=== PATIENT | male | born 1940 | race Caucasian/White ===

== ENCOUNTER 2019-11-28 11:14 | Outpatient (CLI) | payer MEDICARE, MEDICAID, SELFPAY ==
[2019-11-28 14:17] LABS: Vitamin B12 711 pg/mL (193-986)
== END 2019-11-28 11:34 ==
PROVIDERS: PCP Family Medicine; Visit Provider Nurse Practitioner Adult Health
DX: E53.8 Deficiency of other specified B group vitamins (principal)
CPT/HCPCS: 36415; 82607

== ENCOUNTER 2020-04-30 12:49 | Outpatient (REF) | payer MEDICARE, MEDICAID, SELFPAY ==
[2020-04-30 14:02] LABS: Basophils % 0.4; Eosinophils % 0.8; HCT 43.9 % (40.0-50.0); HGB 15.1 g/dL (13.5-17.5); Immature Grans % 0.1 %; Lymphocytes % 21.5; Mean Corp. HGB Concentration 34.4 g/dL (32.0-36.0); Mean Corpuscular Hemoglobin 30.4 pg (27.0-33.0); Mean Corpuscular Volume 88.3 fL (80-95); Mean Platelet Volume 11.7 fL (8.0-11.0); Monocytes % 9.1; Neutrophils % 68.1; Platelet Count 247 x1000/uL (130-400); RBC 4.97 m/cumm (4.50-6.00); RBC Distribution Width 14.4 % (11.8-14.1); White Blood Cell Count 7.67 k/cumm (4.4-10.8)
[2020-04-30 14:03] LABS: Abs Immature Grans 0.01 k/cumm (0.0-0.09); Absolute Basophil Count 0.03 k/cumm (0.0-0.2); Absolute Eosinophil Count 0.06 k/cumm (0.0-0.7); Absolute Lymphocyte Count 1.65 k/cumm (1.2-3.4); Absolute Neutrophil Count 5.22 k/cumm (1.2-6.7)
[2020-04-30 14:30] LABS: Anion Gap 6.4 mmol/L (3-11); BUN 17 mg/dL (7-18); CO2 28.6 mmol/L (21.0-32.0); CREATININE 0.94 mg/dL (0.70-1.30); Calcium 9.6 mg/dL (8.5-10.1); Chloride 104 mmol/L (98-107); Glucose 81 mg/dL (74-106); Potassium 4.2 mmol/L (3.5-5.1); Sodium 139 mmol/L (136-145); TSH 1.63 uIU/mL (0.36-3.74); Vitamin B12 774 pg/mL (193-986)
== END 2020-04-30 13:09 ==
LOC: LBN 12:49
PROVIDERS: PCP Family Medicine; Visit Provider Nurse Practitioner Adult Health
DX: E53.8 Deficiency of other specified B group vitamins (principal); R33.9 Retention of urine, unspecified; N40.1 Benign prostatic hyperplasia with lower urinary tract symptoms; N31.9 Neuromuscular dysfunction of bladder, unspecified; Z13.29 Encounter for screening for other suspected endocrine disorder
CPT/HCPCS: 80048; 82607; 84443; 85025

== ENCOUNTER 2021-11-17 15:01 | Outpatient (REF) | payer MEDICARE, MEDICAID, SELFPAY ==
[2021-11-17 20:48] LABS: Bilirubin Negative (Negative); Blood Negative (Negative); Clarity Cloudy (Clear); Glucose Negative (Negative); Ketones Negative (Negative); Leukocyte Esterase Negative (Negative); Nitrite Negative (Negative); Specific Gravity >= 1.030 (1.005-1.025); Urobilinogen 0.2 EU/dL (Up TO 0.2)
== END 2021-11-17 15:02 | disposition home or self-care (01) ==
LOC: LBN 15:01
PROVIDERS: PCP Family Medicine; Visit Provider Nurse Practitioner Family
DX: N39.0 Urinary tract infection, site not specified (principal)
CPT/HCPCS: 81003; 87086

== ENCOUNTER 2023-07-20 12:45 | Outpatient (REF) | payer MEDICARE, MEDICAID, SELFPAY ==
[2023-07-20 11:32] LABS: Anion Gap 9.3 mmol/L (3-11); BUN 24 mg/dL (7-18); CO2 27.7 mmol/L (21.0-32.0); CREATININE 1.1 mg/dL (0.70-1.30); Calcium 9.2 mg/dL (8.5-10.1); Chloride 106 mmol/L (98-107); Estimated GFR 67.02 (mL/min/1.73m2); Glucose 117 mg/dL (74-106); Potassium 4.1 mmol/L (3.5-5.1); Sodium 143 mmol/L (136-145)
== END 2023-07-20 12:46 | disposition home or self-care (01) ==
LOC: LBN 12:45
PROVIDERS: PCP Family Medicine; Visit Provider Family Medicine
DX: R13.12 Dysphagia, oropharyngeal phase (principal); N40.1 Benign prostatic hyperplasia with lower urinary tract symptoms; G30.9 Alzheimer's disease, unspecified
CPT/HCPCS: 80048

== ENCOUNTER 2023-12-17 16:35 | Outpatient (REF) | payer MEDICARE, MEDICAID, SELFPAY ==
[2023-12-17 17:20] LABS: Anion Gap 6.5 mmol/L (3-11); BUN 25 mg/dL (7-18); CO2 29.5 mmol/L (21.0-32.0); Calcium 9.5 mg/dL (8.5-10.1); Chloride 110 mmol/L (98-107); Estimated GFR 75.14 (mL/min/1.73m2); Glucose 96 mg/dL (74-106); Potassium 4.5 mmol/L (3.5-5.1); Sodium 146 mmol/L (136-145)
== END 2023-12-17 16:36 | disposition home or self-care (01) ==
LOC: LBN 16:35
PROVIDERS: PCP Family Medicine; Visit Provider Nurse Practitioner Adult Health
DX: M62.81 Muscle weakness (generalized) (principal); R79.89 Other specified abnormal findings of blood chemistry
CPT/HCPCS: 80048

== ENCOUNTER 2024-06-29 18:27 | Emergency (ER) | payer MEDICARE, MEDICAID, SELFPAY ==
[2024-06-29] VITALS (30 sets, daily range): BP systolic 142–223; BP diastolic 61–196; PULSE 66–79; RESP 13–29; TEMP 37.2; O2SAT 92–98
--- NOTE | 2024-06-29 18:30 | DI.CT_ITS ---
Exam(s) CT CHEST/ABD/PEL W EXAM: CT CHEST/ABD/PEL W CLINICAL HISTORY: trauma. TECHNIQUE: Imaging Protocol: Axial computed tomography images with coronal and sagittal reformatted images were created and reviewed CONTRAST MATERIAL: Intravenous: Omnipaque 350 Contrast volume:100 ml Oral: no COMPARISON: CT ABD PELVIS WO CONTRAST from 04/02/2017 FINDINGS: CHEST: Tracheobronchial tree: Patent. Pulmonary parenchyma: No consolidation or dominant measurable mass. Dependent changes. Pleura: No effusion or pneumothorax. Mediastinum: Small amount of fluid in distal esophagus which could indicate reflux.. Aorta: Thoracic portion non-dilated. Atherosclerotic changes Pulmonary arteries: No visible emboli. Heart: No pericardial effusion. Coronary artery calcifications. Bones: No evidence of acute fracture. Old mid to lower thoracic compression fractures and accentuate d kyphosis. Soft tissues: Unremarkable. ABDOMEN and PELVIS: Liver: Normal density. No measurable mass. Gallbladder and biliary tract: No evidence of stones or wall thickening. No biliary dilatation. Pancreas: Normal density, no inflammatory process. Spleen: Normal. Kidneys: Normal size, contour and axis. No radiodense stones. No obstructive uropathy. No suspicious masses seen. Adrenal glands: No masses seen. Aorta: Abdominal portion non-dilated. Sclerotic changes. Lymph nodes: Within normal limits. Soft tissues: Unrem left inguinal hernia containing a loop of nonobstructed sigmoid colon. Small fat ty containing right inguinal hernia. Bladder: Catheter in bladder. Bowel: No obstruction or bowel wall thickening. Peritoneal cavity: No ascites. No focal collection. No mesenteric inflammatory response. No free ai r. Bones: Acute nondisplaced fracture right inferior pubic ramus. Old left inferior pubic ramus fractur e. Old left pubic deformity. Reproductive organs: enlarged prostate. IMPRESSION: Chest: No acute abnormality. Old compression fractures. Abdomen pelvis: Acute nondisplaced fracture right states inferior pubic ramus. No additional acute fractures. No acute internal organ injury. RADIATION DOSE DELIVERED: Total DLP DATA REPOSITORY: All CT scans at this facility are submitted to the National Radiology Data Registry (NRDR) Dose Index Registry (DIR) with the [employer] (ACR). RADIATION OPTIMIZATION: All CT scans at this facility use at least one of these dose optimization te chniques: automated exposure control; mA and/or kV adjustment per patient size (includes targeted exa ms where dose is matched to clinical indication); or iterative reconstruction.
--- NOTE | 2024-06-29 18:30 | DI.CT_ITS ---
Exam(s) CT HEAD CERVICAL SPINE WO EXAM: CT HEAD CERVICAL SPINE WO CLINICAL HISTORY: trauma. TECHNIQUE: Imaging Protocol: Axial computed tomography images with coronal and sagittal reformatted images were created and reviewed COMPARISON: No exams were available for comparison FINDINGS: Head CT Ventricles and Extra axial spaces: Normal in size and morphology for the patient's age. Hemorrhage: None. Cerebral parenchyma: No evidence of mass or acute infarct. Atrophy, consistent with the patient's ag e. Mild white matter changes of small vessel disease. Midline shift: None. 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 Calvarium: Normal. Visualized Paranasal sinuses/Mastoids: Ethmoid sinus mucosal thickening. Soft tissues: Unremarkable. Cervical Spine CT BONES: Vertebral body heights are maintained. Alignment is normal. There is no evidence of acute frac ture. Advanced degenerative disc changes and facet degenerative changes are seen . SOFT TISSUES: No paraspinal hematoma. The airway appears intact. No pneumothorax is seen at the lung apices. IMPRESSION: Head CT: No acute abnormality. C-spine CT: Degenerative changes, no acute abnormality. RADIATION DOSE DELIVERED: Total DLP DATA REPOSITORY: All CT scans at this facility are submitted to the National Radiology Data Registry (NRDR) Dose Index Registry (DIR) with the [employer] (ACR). RADIATION OPTIMIZATION: All CT scans at this facility use at least one of these dose optimization te chniques: automated exposure control; mA and/or kV adjustment per patient size (includes targeted exa ms where dose is matched to clinical indication); or iterative reconstruction.
[2024-06-29] MEDS: Lidocaine 2% Jelly 6 ML SYR (18:45)
--- NOTE | 2024-06-29 18:45 | RT.EKG_ITS ---
APPROVED REPORT Exam: Resting ECG Reason for Exam: unwitnessed fall Patient Location: E HR:91 bpm ECG Measurements Heart Rate 91 AXIS IA [id number] P [id number] QRSd 166 QRS 52 QT 402 T 47 QTc 559 Conclusion Atrial fibrillation...? atrial activity Right bundle branch block...QRSd>120, terminal axis(90,270) Repol abnrm, prob ischemia, anterolateral lds...ST dep, T neg, I aVL V2-V6
--- NOTE | 2024-06-29 18:50 | ED.GENADUL_ITS ---
Discharge Plan Disposition Patient Disposition: [facility](SNF) Discharge Details Chief Complaint: Fall/Non TraumaCriteria Clinical Impression: Fall, Closed fracture of inferior pubic ramus Primary Care Provider: Vivek Nava ED Provider: Davi Guardado Home Meds and New Rx's Prescriptions: No Action bisacodyl 10 mg suppository 10 mg IA DAILY PRN mirtazapine 7.5 mg tablet 7.5 mg PO DAILY sennosides [Senna Lax] 8.6 mg tablet 8.6 mg PO DAILY sertraline 50 mg tablet 75 mg PO DAILY Discharge Instructions Instructions: Pelvic fracture, Preventing Falls ED Additional Instructions: German was seen in the emergency department after an unwitnessed fall at the facility. We performed EKG and labs as well as a urine test that were all unremarkable. We performed CAT scans of his head and neck as well as of his chest that were all unremarkable. We performed a CT of his abdomen pelvis that was unremarkable other than a possible right inferior pubic ramus fracture. This is a nonoperative fracture. Should remain nonweightbearing for this. He should follow-up with orthopedics clinic. Follow-up with your primary care doctor. Return here to the emergency department if you have any other concerns. Referrals: [facility] [Provider Group] - 5 days HPI General Date/Time Provider Initiated Documentation: 06/29/24 18:42 . HPI Narrative: 84-year-old male alert to name only at baseline apparently found down at his facility. Unwitnessed fall. Patient unable to give me further history due to dementia. Facility sent him due to the unwitnessed fall. Related Data Home Medications ?Medication ?Instructions ?Recorded ?Confirmed bisacodyl 10 mg rectal suppository 10 mg IA DAILY PRN 06/29/24 06/29/24 mirtazapine 7.5 mg tablet 7.5 mg PO DAILY 06/29/24 06/29/24 sennosides 8.6 mg tablet (Senna 8.6 mg PO DAILY 06/29/24 06/29/24 Lax) sertraline 50 mg tablet 75 mg PO DAILY 06/29/24 06/29/24 Allergies Allergy/AdvReac Type Severity Reaction Status Date / Time No Known Allergies Allergy Unverified 06/29/24 18:33 General Stated Complaint: Fall/Non TraumaCriteria SUZAN: 3 Review of Systems Narrative: Unable to obtain due to the patient's baseline dementia Exam Const General: cooperative Nutritional Appearance: average body habitus Orientation: alert HENMT Head: normal to inspection Ears: external ears normal Mouth: moist mucous membranes Eyes Pupils: PERRL EOM: EOM intact bilaterally and No nystagmus Neck Neck: full ROM and no tracheal deviation Chest Chest: normal inspection of the chest Resp Auscultation: clear to auscultation bilaterally Cardio Rate: regular rate Rhythm: regular rhythm GI Inspection: normal to inspection Palpation: soft, no guarding, not rigid and nontender Back/Spine/Pelvis Back: No no CVA tenderness Cervical Spine: No cervical spinal tenderness Thoracic/Lumbar Spine: thoracic and lumbar spine normal to inspection, No thoracic spinal tenderness and No lumbar spinal tenderness Skin General skin exam: no rashes or lesions noted Neuro General: patient alert, patient awake and patient oriented x3 Cranial Nerves: CN's II-XI intact bilaterally, PERRL and no nystagmus Cognition: normal cognition Motor: muscle tone normal throughout and strength 5/5 throughout Sensory Exam: no sensory deficits noted Extrem General: normal to inspection Course Vital Signs Vital signs: Vital Signs Temperature 37.2 C 06/29/24 18:30 Pulse 73 06/29/24 18:30 Respiratory Rate 24 06/29/24 18:30 Blood Pressure 151/68 H 06/29/24 18:30 Pulse Oximetry 98 06/29/24 18:30 Temperature 37.2 C 06/29/24 18:30 Temperature Source Tympanic 06/29/24 18:30 Pulse 73 06/29/24 18:30 Respiratory Rate 24 06/29/24 18:30 Respiratory Effort Pursed Lip 06/29/24 18:32 Blood Pressure 151/68 H 06/29/24 18:30 Blood Pressure Position Supine 06/29/24 18:30 Pulse Oximetry 98 06/29/24 18:30 Oxygen Delivery Method Room Air 06/29/24 18:30 Oxygen Flow Rate 0 06/29/24 18:30 Lab/Test Results Lab/Test Results: 06/29/24 18:48 Blood Blood Culture - Pending 06/29/24 18:48 Blood Blood Culture - Pending Medical Decision Making Is an 84-year-old male history of dementia and alert to name only at baseline presents after a fall. He did not have any external signs of trauma on my examination and unable to provide history based off his baseline dementia. EKG showing sinus rhythm. Sent broad labs to look for electrolyte or metabolic derangements but these were all unremarkable. He was afebrile. Urine was without signs of infection. Ended up performing CT head and cervical spine and CT chest abdomen pelvis. No acute injuries seen from this unwitnessed fall other than a possible acute right inferior pubic ramus fracture. This would be a nonoperative fracture in most cases. Certainly does not need emergent treatment for this. Can refer to orthopedics. Already at [facility] rehab that can provide care for him. We can have him follow-up with orthopedics. I attempted to call his son but it went to voicemail and I left a message and have yet to receive a call back. He can remain nonweightbearing on the right leg until he can follow-up with orthopedics. Medical Records Medical records reviewed: Yes I reviewed the patient's medical records. Imaging Data Radiologic Study: Attestation: I personally reviewed and interpreted this imaging study as follows: Imaging: CT Scan (chest and abdomen/pelvis) Radiologist's impression: Chest IMPRESSION: 1. No acute injury. 2. Fluid in the distal esophagus, concerning for gastroesophageal reflux. 3. Minimal centrilobular emphysema. Abomen and pelvis IMPRESSION: 1. Possible acute right inferior pubic ramus fracture. 2. Old symphysis pubis and left inferior pubic ramus fractures. 3. Left inguinal hernia containing a loop of sigmoid colon. No evidence of strangulation or bowel obstruction. Radiologic Study #2: Attestation: I personally reviewed and interpreted this imaging study as follows: Imaging: CT Scan (head and cervical spine) Radiologist's impression: Unremarkable Lab Data Lab results reviewed: Yes I reviewed the patient's lab results. ECG Data Interpretation: Atrial fibrillation with right bundle branch block. Otherwise unremarkable EKG. Quality:SDOH Health Related Social Needs: No Data to Display [facility] All Active Problems (Updated 06/29/24 @ 22:43 by Davi Guardado MD) Closed fracture of inferior pubic ramus (Acute) Fall (Acute) Social History Smoking risk assessment performed?: No Housing: senior living Do you feel safe in your relationship?: Yes
[2024-06-29 18:54] LABS: Abs Immature Grans 0.09 10^3/uL (0.0-0.06); Absolute Basophil Count 0.04 10^3/uL (0.0-0.2); Absolute Eosinophil Count 0.15 10^3/uL (0.0-0.7); Absolute Lymphocyte Count 2.17 10^3/uL (1.2-3.4); Absolute Monocyte Count 0.78 10^3/uL (0.1-0.8); Absolute Neutrophil Count 9.55 10^3/uL (1.2-6.7); Basophils % 0.3 %; Eosinophils % 1.2 %; HCT 40.3 % (40.0-50.0); HGB 13.5 g/dL (13.5-17.5); Immature Grans % 0.7 %; MCH 30.3 pg (27.0-33.0); MCHC 33.5 % (32.0-36.0); MCV 91 fL (80-95); MPV 11.3 fL (8.0-11.0); Monocytes % 6.1 %; Neutrophils % 74.7 %; Platelet Count 203 10^3/uL (130-400); RBC 4.45 10^6/uL (4.36-5.78); RDW-SD 46.6 fL; WBC 12.78 10^3/uL (4.4-10.8)
[2024-06-29 18:55] LABS: Lactate 2.6 mmol/L (0.6-1.4)
[2024-06-29] MEDS: cefTRIAXone 2 GM/50 ML BAG IVPB (19:07)
[2024-06-29] MEDS: Normal Saline 250 ML 500 ML IV (19:08)
[2024-06-29 19:15] LABS: Bilirubin Negative (Negative); Blood Trace-intact (Negative); Clarity Clear (Clear); Glucose Negative (Negative); Ketones Negative (Negative); Leukocyte Esterase Negative (Negative); Nitrite Negative (Negative); Specific Gravity >= 1.030 (1.005-1.025); Urobilinogen 0.2 mg/dL (Up to 0.2); pH 5.5 (5-8)
[2024-06-29 19:15] LABS: INR 1.2 (0.9-1.1); Prothrombin Time 11.6 sec (9.1-11.1)
[2024-06-29 19:17] LABS: ALT 24 U/L (16-63); AST 16 U/L (15-37); Albumin 3.5 g/dL (3.4-5.0); Alkaline Phosphatase 114 U/L (46-116); Anion Gap 10.8 mmol/L (3-11); BUN 28 mg/dL (7-18); CO2 25.2 mmol/L (21.0-32.0); CREATININE 1.4 mg/dL (0.70-1.30); Calcium 9.3 mg/dL (8.5-10.1); Chloride 109 mmol/L (98-107); Estimated GFR 49.87 (mL/min/1.73m2); Glucose 181 mg/dL (74-106); Magnesium 1.7 mg/dL (1.8-2.4); Potassium 3.9 mmol/L (3.5-5.1); Sodium 145 mmol/L (136-145); Total Protein 7.2 g/dL (6.4-8.2); Troponin I < 50 ng/L (< or =60)
[2024-06-29 19:26] LABS: Bacteria Rare HPF (Negative); C & S Indicated? No; Casts Negative LPF (Negative); Crystals Negative HPF (Negative); Epithelial Cells Rare HPF (Negative); Mucus Negative (Negative); RBC 0-2 HPF (0-2); WBC Negative HPF (0-5)
[2024-06-29] MEDS: Normal Saline - Diluent 50 ML VIAL IJ (19:31)
[2024-06-29] MEDS: Omnipaque 350 MG/ML 100 ML BTL IJ (19:31)
[2024-06-29] MEDS: MORPHine 10 MG/ML VIAL 2 MG IVP (20:05)
[2024-06-29] MEDS: LORazepam 2 MG/ML VIAL 0.5 MG IVP (20:05)
[2024-06-29] MEDS: Normal Saline Flush 10 ML SYR IVP (20:27)
--- NOTE | 2024-06-29 20:48 | DI.VRAD_ITS ---
PROCEDURE INFORMATION: Exam: CT Chest With Contrast; Diagnostic Exam date and time: 06/29/2024 8:14 PM Age: 84 years old Clinical indication: Other: Trauma TECHNIQUE: Imaging protocol: Diagnostic computed tomography of the chest with contrast. 3D rendering (Not supervised by radiologist): MIP and/or 3D reconstructed images were created by the technologist. Contrast material: 350; Contrast volume: 100 ml; Contrast route: IV; COMPARISON: CT HEAD CERVICAL SPINE WO 06/29/2024 7:49 PM FINDINGS: Lungs: Minimal centrilobular emphysematous changes. Dependent subsegmental atelectasis in the lung bases. Pleural spaces: Unremarkable. No pneumothorax. No pleural effusion. Heart: No cardiac chamber enlargement or pericardial effusion. Coronary arteries: Moderate coronary artery calcification. Esophagus: Fluid-filled distal esophagus. Lymph nodes: Unremarkable. No enlarged lymph nodes. Vasculature: Calcified atherosclerotic disease. No aneurysm. Bones/joints: Increased thoracic kyphosis. No acute fracture or dislocation. Soft tissues: Small left-sided Bochdalek's hernia. IMPRESSION: 1. No acute injury. 2. Fluid in the distal esophagus, concerning for gastroesophageal reflux. 3. Minimal centrilobular emphysema. PROCEDURE INFORMATION: Exam: CT Abdomen And Pelvis With Contrast Exam date and time: 06/29/2024 8:14 PM Age: 84 years old Clinical indication: Other: Trauma TECHNIQUE: Imaging protocol: Computed tomography of the abdomen and pelvis with contrast. 3D rendering (Not supervised by radiologist): MIP and/or 3D reconstructed images were created by the technologist. COMPARISON: No relevant prior studies available. FINDINGS: Liver: Benign cyst in the lateral left lobe of the liver. Gallbladder and biliary ducts: Normal. No calcified stones. No ductal dilation. Pancreas: Scattered pancreatic parenchymal calcifications consistent with chronic pancreatitis. No pancreatic duct dilatation or focal parenchymal abnormality. Spleen: Normal. No splenomegaly. Adrenal glands: Normal. No mass. Kidneys and ureters: Normal. No hydronephrosis. Stomach and bowel: No bowel obstruction. Appendix: No evidence of appendicitis. Intraperitoneal space: Unremarkable. No free air. No significant fluid collection. Vasculature: Calcified atherosclerotic disease. No aneurysm. Multiple pelvic phleboliths. Lymph nodes: Unremarkable. No enlarged lymph nodes. Urinary bladder: Urinary bladder is nondistended. Elmore catheter in place. Reproductive: Moderate prostatic enlargement. Bones/joints: Old left inferior pubic ramus fracture. Mildly displaced right inferior pubic ramus fracture appears acute. Old symphysis pubis injury. Mild to moderate multilevel degenerative disc disease. Marked multilevel lower lumbar facet arthropathy. Soft tissues: Left inguinal hernia contains a loop of sigmoid colon. IMPRESSION: 1. Possible acute right inferior pubic ramus fracture. 2. Old symphysis pubis and left inferior pubic ramus fractures. 3. Left inguinal hernia containing a loop of sigmoid colon. No evidence of strangulation or bowel obstruction. Dictated and Authenticated by: Hakan Nielsen MD. Ordering:JUAN JOSE Tomlinson MD
--- NOTE | 2024-06-29 20:52 | DI.VRAD_ITS ---
PROCEDURE INFORMATION: Exam: CT Head Without Contrast Exam date and time: 06/29/2024 7:49 PM Age: 84 years old Clinical indication: Other: Trauma fall TECHNIQUE: Imaging protocol: Computed tomography of the head without contrast. COMPARISON: No relevant prior studies available. FINDINGS: Brain: Prominence of cerebral sulci reflects diffuse cerebral atrophy. Poorly marginated hypodensities seen throughout the deep and periventricular white matter of both cerebral hemispheres are consistent with microvascular ischemic changes. A chronic ischemic insult is also seen in the central right cerebellar hemisphere and the brainstem and remainder of the cerebellum cerebellum are otherwise unremarkable. There is no evidence of acute transcortical infarction or recent intracranial hemorrhage. Cerebral ventricles: Dilatation of the 3rd and lateral ventricles is commensurate with the degree of cerebral atrophy. Paranasal sinuses: Grossly clear throughout. Mastoid air cells: Grossly clear bilaterally. Bones: Bony calvarium and skull base are intact and no acute fractures are detected. Soft tissues: Unremarkable. IMPRESSION: Diffuse atrophy and chronic multifocal ischemic changes with no evidence of acute transcortical infarction, recent intracranial hemorrhage or hydrocephalus. No acute intracranial process is detected. PROCEDURE INFORMATION: Exam: CT Cervical Spine Without Contrast Exam date and time: 06/29/2024 7:49 PM Age: 84 years old Clinical indication: Other: Trauma fall TECHNIQUE: Imaging protocol: Computed tomography of the cervical spine without contrast. COMPARISON: No relevant prior studies available. FINDINGS: Bones: There is arthrosis involving the anterior atlantodental interval with loss of joint space and marginal osteophyte formation and the odontoid process is grossly intact. There is mild retrolisthesis of C3 upon C4 and there is gross preservation of vertebral body height throughout cervical levels with no vertebral body fractures or other significant subluxations detected. Changes of facet arthropathy are seen bilaterally throughout cervical levels with no acute fractures detected involving the posterior elements of the cervical spine. Discs/Spinal canal/Neural foramina: Loss of disc space height with posterior osteocartilaginous ridging is most significant at C5-C6 and C6-C7 resulting in canal narrowing and possible mass-effect upon the ventral cord which could be better evaluated with MRI. Uncovertebral and facet changes produce multilevel foraminal distortions/narrowings. Lungs: No pneumothorax or consolidation detected at the lung apices. Soft tissues: Unremarkable. IMPRESSION: Cervical spondylosis with central canal and foraminal narrowing as above. No acute cervical fractures are detected. Dictated and Authenticated by: Tor Arora MD. Ordering:JUAN JOSE Tomlinson MD
[2024-06-29 22:31] LABS: Troponin I < 50 ng/L (< or =60)
== END 2024-06-29 23:10 | disposition skilled nursing facility (03) ==
PROVIDERS: Emergency Provider Student in an Organized Health Care Education/Training Program; PCP Family Medicine
DX: S32.501A Unspecified fracture of right pubis, initial encounter for closed fracture (principal); W19.XXXA Unspecified fall, initial encounter; Y92.129 Unspecified place in nursing home as the place of occurrence of the external cause
CPT/HCPCS: 36415; 51702; 74177; 80053; 87040; 93005; 96365; 96375; 99285; 70450; 71260; 72125; 81003; 81015; 83605; 83735; 84484; 85025; 85610; 93010; 99283; J0696; J2060; J2270; J3490

== ENCOUNTER 2024-08-19 14:27 | Emergency (ER) | payer MEDICARE, MEDICAID, SELFPAY ==
[2024-08-19] VITALS (19 sets, daily range): BP systolic 110–142; BP diastolic 52–76; PULSE 59–89; RESP 8–30; TEMP 36.5; O2SAT 95–98
--- NOTE | 2024-08-19 14:45 | DI.CT_ITS ---
Exam(s) CT HEAD WO EXAM: CT HEAD WO CLINICAL HISTORY: ams. TECHNIQUE: Imaging Protocol: Axial computed tomography images with coronal and sagittal reformatted images were created and reviewed COMPARISON: CT ABD PELVIS WO CONTRAST from 04/02/[address] CHEST/ABD/PEL W from 06/29/[address] HEAD CERVICAL SPINE WO from 06/29/2024 CR XR CHEST 2V PA LATERAL from 08/19/2024 FINDINGS: There are no skull fractures. There is no fluid in the visualized paranasal sinuses. There is no evidence of intracranial hemorrhage, mass effect, or shift of midline structures. There are no extra-axial fluid collections. There is symmetrical advanced involutional change again noted. There is a non acute-previously present lacunar infarct in the right cerebellar hemisphere again no lauren. Abundant bilateral periventricular hypodensity is again noted consistent with chronic small ves chasidy white matter disease. Small nonhemorrhagic lacunar infarct in the medial right basal ganglia is again noted. No new territorial infarct evident. No orbital findings. No dysconjugate gaze. IMPRESSION: No acute intracranial findings on this noninfused CT scan of the brain. Symmetrical atrophy again noted as well as abundant periventricular white matter chronic small vessel disease and unchanged small nonhemorrhagic lacunar infarcts in the right cerebellar hemisphere and m edial right basal ganglia. Report called by myself to ER physician 08/19/2024 at 4 p.m. RADIATION DOSE DELIVERED: 970.46mGy.cm Total DLP DATA REPOSITORY: All CT scans at this facility are submitted to the National Radiology Data Registry (NRDR) Dose Index Registry (DIR) with the [employer] (ACR). RADIATION OPTIMIZATION: All CT scans at this facility use at least one of these dose optimization te chniques: automated exposure control; mA and/or kV adjustment per patient size (includes targeted exa ms where dose is matched to clinical indication); or iterative reconstruction.
--- NOTE | 2024-08-19 14:45 | DI.RAD_ITS ---
Exam(s) XR PELVIS AP EXAM: XR PELVIS AP CLINICAL HISTORY: ams, recent pelv fracture. TECHNIQUE: 2D digital imaging was performed. COMPARISON: No exams were available for comparison FINDINGS: Single view No evidence of hip fracture. There is a fracture of the right inferior pubic ramus. Deformity of le ft inferior pubic ramus and left ischial tuberosity reflects prior healed fracture site. IMPRESSION: Acute appearing fracture of the right inferior pubic ramus. No other acute fractures identified. DATA REPOSITORY: RADIATION DOSE DELIVERED:
--- NOTE | 2024-08-19 14:45 | DI.RAD_ITS ---
Exam(s) XR CHEST 2V PA LATERAL EXAM: XR CHEST 2V PA LATERAL CLINICAL HISTORY: fall. TECHNIQUE: 2D digital imaging was performed. COMPARISON: No exams were available for comparison FINDINGS: 2 views: Heart size is normal. The mediastinum is not widened. No obvious lung infiltrates nor pleural effusions. No pulmonary edema. No pneumothorax. No obvious fractures. Compression fractures in the mid-lower thoracic vertebrae noted, age indeterminate. IMPRESSION: No acute pulmonary findings. Vertebral bodies height loss, age indeterminate. DATA REPOSITORY: RADIATION DOSE DELIVERED:
--- NOTE | 2024-08-19 14:52 | ED.GENADUL_ITS ---
Discharge Plan Disposition Patient Disposition: Home Condition: Improving Discharge Details Chief Complaint: GenMedical Clinical Impression: Decreased appetite Primary Care Provider: Vivek Nava ED Provider: Merrill Caballero Home Meds and New Rx's Prescriptions: No Action bisacodyl 10 mg suppository 10 mg [place] DAILY PRN mirtazapine 7.5 mg tablet 7.5 mg PO DAILY sennosides [Senna Lax] 8.6 mg tablet 8.6 mg PO DAILY sertraline 50 mg tablet 75 mg PO DAILY buspirone 5 mg tablet 5 mg PO ONCE celecoxib [Celebrex] 200 mg capsule 200 mg PO DAILY methocarbamol 500 mg tablet 500 mg PO Q6H PRN Discharge Instructions Instructions: Delirium (confusion) Additional Instructions: Please follow-up with primary care physician. Please return to the emergency department for any worsening symptoms HPI General Date/Time Provider Initiated Documentation: 08/19/24 14:29 . HPI Narrative: 84-year-old male brought in by EMS from intermediate for evaluation of decreased p.o. intake refusing food fluid and medication today. Patient at baseline nonverbal. At rehab over the last couple weeks after breaking his hip. Related Data Home Medications ?Medication ?Instructions ?Recorded ?Confirmed bisacodyl 10 mg rectal suppository 10 mg W[place] DAILY PRN 06/29/24 08/19/24 mirtazapine 7.5 mg tablet 7.5 mg PO DAILY 06/29/24 08/19/24 sennosides 8.6 mg tablet (Senna 8.6 mg PO DAILY 06/29/24 08/19/24 Lax) sertraline 50 mg tablet 75 mg PO DAILY 06/29/24 08/19/24 buspirone 5 mg tablet 5 mg PO ONCE 08/19/24 08/19/24 celecoxib 200 mg capsule (Celebrex) 200 mg PO DAILY 08/19/24 08/19/24 methocarbamol 500 mg tablet 500 mg PO Q6H PRN 08/19/24 08/19/24 Allergies Allergy/AdvReac Type Severity Reaction Status Date / Time No Known Allergies Allergy Unverified 08/19/24 14:31 General Stated Complaint: GenMedical SUZAN: 3 Exam Narrative Exam Narrative: Alert interactive following commands nonverbal Moist mucous membranes tongue secretions Lungs clear bilaterally no wheezes rales or rhonchi Normal heart sounds no murmurs rubs or gallops Abdomen soft nontender nondistended Equal strength upper lower extremities bilaterally, sensation intact, no truncal ataxia, no cranial nerve deficits Course Vital Signs Vital signs: Vital Signs Temperature 36.5 C 08/19/24 14:27 Pulse 82 08/19/24 14:27 Respiratory Rate 16 08/19/24 14:27 Blood Pressure 129/76 08/19/24 14:27 Pulse Oximetry 98 08/19/24 14:27 Temperature 36.5 C 08/19/24 14:27 Pulse 66 08/19/24 14:41 Respiratory Rate 18 08/19/24 14:41 Respiratory Effort Normal 08/19/24 14:40 Blood Pressure 133/52 L 08/19/24 14:41 Pulse Oximetry 98 08/19/24 14:41 Oxygen Delivery Method Room Air 08/19/24 14:41 Pain Level 2 08/19/24 14:27 Medical Decision Making 84-year-old male baseline nonverbal sent in from intermediate via EMS for evaluation of not taking food medication and fluids today, patient hemodynamically stable afebrile nontoxic no external signs of trauma, moving all extremities to command, normal heart and lung sounds, abdomen soft nontender nondistended, pelvis stable, warm well-perfused extremities, consider viral illness versus electrolyte derangement versus UTI lower suspicion for intracranial hemorrhage or CVA lower suspicion for pneumonia pneumothorax aortic pathology ACS or PE. Will obtain screening labs chest x-ray x-ray pelvis urinalysis COVID flu RSV swab, CT head, close reassessment 17: 21 patient resting comfortably no acute distress given a snack here no issues. Hemodynamically stable. Labs and imaging unremarkable. Pelvic fracture is reason for patient's rehabilitation. No evidence of infection electrolyte derangement intracranial process or dehydration. Quality:[facility] Health Related Social Needs: No Data to Display PFSH All Active Problems (Updated 08/19/24 @ 17:23 by Merrill Caballero MD) Decreased appetite (Acute) Social History Smoking risk assessment performed?: No Housing: intermediate Do you feel safe in your relationship?: Yes
[2024-08-19 15:05] LABS: Abs Immature Grans 0.02 10^3/uL (0.0-0.06); Absolute Basophil Count 0.03 10^3/uL (0.0-0.2); Absolute Eosinophil Count 0.15 10^3/uL (0.0-0.7); Absolute Monocyte Count 0.66 10^3/uL (0.1-0.8); Absolute Neutrophil Count 4.16 10^3/uL (1.2-6.7); Basophils % 0.4 %; Eosinophils % 2.1 %; HCT 42.1 % (40.0-50.0); HGB 13.8 g/dL (13.5-17.5); Immature Grans % 0.3 %; Lymphocytes % 30.5 %; MCH 29.7 pg (27.0-33.0); MCHC 32.8 % (32.0-36.0); MCV 91 fL (80-95); Monocytes % 9.1 %; Neutrophils % 57.6 %; Platelet Count 390 10^3/uL (130-400); RBC 4.64 10^6/uL (4.36-5.78); RDW 14.1 % (11.8-14.1); WBC 7.22 10^3/uL (4.4-10.8)
[2024-08-19 15:20] LABS: ALT 27 U/L (16-63); AST 26 U/L (15-37); Albumin 3.2 g/dL (3.4-5.0); Alkaline Phosphatase 306 U/L (46-116); Anion Gap 6.9 mmol/L (3-11); BUN 19 mg/dL (7-18); Bilirubin, Total 0.59 mg/dL (0.2-1.0); CO2 32.1 mmol/L (21.0-32.0); CREATININE 1.1 mg/dL (0.70-1.30); Calcium 9.6 mg/dL (8.5-10.1); Chloride 102 mmol/L (98-107); Estimated GFR 66.61 (mL/min/1.73m2); Glucose 88 mg/dL (74-106); Sodium 141 mmol/L (136-145); Total Protein 7.7 g/dL (6.4-8.2)
[2024-08-19 15:45] LABS: COVID-19 PCR Negative (Negative); Influenza A PCR Negative (Negative); Influenza B PCR Negative (Negative); RSV PCR Negative (Negative); Source Nasopharynx
[2024-08-19 16:47] LABS: Bilirubin Negative (Negative); Blood Negative (Negative); Clarity Clear (Clear); Glucose Negative (Negative); Ketones Trace mg/dL (Negative); Leukocyte Esterase Trace (Negative); Nitrite Negative (Negative); Urobilinogen 0.2 mg/dL (Up to 0.2); pH 5.5 (5-8)
[2024-08-19 17:16] LABS: Bacteria Rare HPF (Negative); C & S Indicated? No; Casts 0-2 Hyaline LPF (Negative); Crystals Negative HPF (Negative); Epithelial Cells Rare HPF (Negative); Mucus Trace (Negative); RBC 0-2 HPF (0-2); WBC 0-2 HPF (0-5)
== END 2024-08-19 18:09 | disposition home or self-care (01) ==
PROVIDERS: Emergency Provider Emergency Medicine; PCP Family Medicine
DX: R63.0 Anorexia (principal)
CPT/HCPCS: 36415; 80053; 87637; 99285; 70450; 71046; 72170; 81003; 81015; 85025; 99284

== ENCOUNTER 2025-05-03 15:49 | Emergency (ER) | payer MEDICARE, MEDICAID, SELFPAY ==
--- NOTE | 2025-05-03 15:45 | DI.CT_ITS ---
Exam(s) CT HEAD WO EXAM: CT HEAD WO CLINICAL HISTORY: Fall. TECHNIQUE: Imaging Protocol: Axial computed tomography images with coronal and sagittal reformatted images were created and reviewed COMPARISON: CT CT HEAD WO from 08/19/2024 FINDINGS: There are no skull fractures. There is no fluid in the visualized paranasal sinuses. There is no evidence of intracranial hemorrhage, mass effect, or shift of midline structures. There are no extra-axial fluid collections. The ventricles are not enlarged or shifted and there is no blo od within the ventricular system nor within the basal cisterns. Symmetrical atrophy again noted. Periventricular hypodensity around the atria of both lateral ventri cles is unchanged. Consistent with chronic small vessel ischemic changes. There is evidence of prior bilateral cataract surgery in the orbits. No other significant orbital fi ndings. IMPRESSION: No acute intracranial findings on this noninfused CT scan of the brain. No significant change compar ed to prior CT scan of July 2024 Symmetrical atrophy again noted. No hemorrhage intra nor extra-axial. Called by myself to ER provider 05/03/2025 4:42 p.m. RADIATION DOSE DELIVERED: 911.22mGy.cm Total DLP DATA REPOSITORY: All CT scans at this facility are submitted to the National Radiology Data Registry (NRDR) Dose Index Registry (DIR) with the [employer] (A[employer]). RADIATION OPTIMIZATION: All CT scans at this facility use at least one of these dose optimization te chniques: automated exposure control; mA and/or kV adjustment per patient size (includes targeted exa ms where dose is matched to clinical indication); or iterative reconstruction.
[2025-05-03 15:59] VITALS: BP 127/72; PULSE 52; RESP 18; TEMP 36.3; O2SAT 96
--- NOTE | 2025-05-03 16:00 | W.ED.GENAD ---
Discharge Plan Disposition Patient Disposition: [facility]-Way Facility(SNF) Condition: Stable Discharge Details Clinical Impression: Closed head injury, Fall Primary Care Provider: Vivek Nava ED Provider: Aiyana Figueroa Home Meds and New Rx's Prescriptions: Continued bisacodyl 10 mg suppository 10 mg [place] DAILY PRN mirtazapine 7.5 mg tablet 7.5 mg PO DAILY sennosides [Senna Lax] 8.6 mg tablet 8.6 mg PO DAILY sertraline 50 mg tablet 75 mg PO DAILY buspirone 5 mg tablet 5 mg PO BID celecoxib [Celebrex] 200 mg capsule 200 mg PO DAILY methocarbamol 500 mg tablet 500 mg PO Q6H PRN acetaminophen 325 mg capsule 325 mg PO Q6H PRN Discharge Instructions Instructions: Preventing falls in adults, Head Injury Observation (DC) Additional Instructions: At this time the head CT is unchanged from July 2024. No evidence of acute bleeding or broken skull or fractures. Please clean the abrasion once daily with soap and water and apply a bandage if needed. Allow to air dry at least 1 to 2 hours a day. Follow up with primary care provider in 3-5 days as needed continue to observe for head injury observation. Return to ED sooner if any worsening mentation, confusion, vomiting, complaints of pain or concerns. Thank you for allowing us to care for you today. Referrals: Vivek Nava [Primary Care Provider] - 5 days Discharge Data Discharge Date/Time-TO BE ENTERED AT DEPARTURE: 05/03/25 17:10 HPI General Mode of arrival: EMS. Date/Time Provider Initiated Documentation: 05/03/25 15:59. Limitations to Documentation: physical limitation (Alzheimers dementia). Information obtained by: EMS, RN notes reviewed and old records reviewed. HPI Narrative: 84 year old male [facility] via [facility] after a unwitnessed fall today. EMS reports that patient may have been geting up to bathroom and tripped. He has a abrasion to the right frontal scalp and a abrasion to his right elbow and right knee. Patient is mostly non-verbal at baseline due to alzheimers dementia and aphasia. No blood thinners, VSS per EMS. Patient denies pain, no crepitus or pain elicited with C-spine palpation. Moves all 4 extremities and follows commands. Related Data Home Medications ?Medication ?Instructions ?Recorded ?Confirmed bisacodyl 10 mg rectal suppository 10 mg [place] DAILY PRN 06/29/24 05/03/25 mirtazapine 7.5 mg tablet 7.5 mg PO DAILY 06/29/24 05/03/25 sennosides 8.6 mg tablet (Senna 8.6 mg PO DAILY 06/29/24 05/03/25 Lax) sertraline 50 mg tablet 75 mg PO DAILY 06/29/24 05/03/25 buspirone 5 mg tablet 5 mg PO BID 08/19/24 05/03/25 celecoxib 200 mg capsule (Celebrex) 200 mg PO DAILY 08/19/24 05/03/25 methocarbamol 500 mg tablet 500 mg PO Q6H PRN 08/19/24 05/03/25 acetaminophen 325 mg capsule 325 mg PO Q6H PRN 05/03/25 05/03/25 Allergies Allergy/AdvReac Type Severity Reaction Status Date / Time No Known Allergies Allergy Unverified 05/03/25 16:03 General SUZAN: 3 Review of Systems All systems reviewed & are unremarkable except as noted in HPI and below and Unobtainable due to mental condition (Limited due to patients alzheimers) Constitutional Constitutional: Reports as per HPI and Reports frequent falls ENT Ears, Nose, Mouth, and Throat: Reports disequilibrium Integumentary/Breasts Skin/Breast: Reports wounds (Abrasions right frontal and elbow and knee) Neurologic Neurologic: Reports as per HPI, Reports frequent falls and Reports disequilibrium Exam Narrative Exam Narrative: General: Awake, at baseline mentation, does respond to commands says yes or no however does not continue with conversation. According to EMS this is his baseline he does have a history of Alzheimer's dementia. Skin: Warm and Dry HEENT: Head: No palpable deformities, Normocephalic does have some right frontal scalp swelling with a superficial abrasion noted. Bleeding controlled. Eyes: Pupils PERRLA, EOM's intact. No periorbital eccymosis or step off Ears: Canal patent. Tympanic membranes are clear . No orantes's sign, no hemptympanum. Nose/Face: Atraumatic. Facial bones nontender to palpation and stable with manipulation. Mouth/Throat: No intraoral trauma. Teeth and mandible are intact. Neck: No midline tenderness, no step off, no deformity to palpation of C-spine. Trachea midline. Chest: No surface trauma. Nontender without crepitus or deformity. Lungs clear to ausculatation bilaterally. Heart: RRR, no rubs, murmurs or gallop. Abdomen: No abrasions, ecchymosis, or surface trauma. Nondistended. Nontender to palpation no guarding, rebound, or rigidity. Pelvis: Nontender to palpation and stable to compression. Femoral pulses strong and equal Extremities: Superficial abrasion noted to right elbow and right knee that has been bandaged by the facility. Sensation intact. Peripheral pulses intact and equal. Neuro: Awake and alert x 1 is at baseline,, GCS 15, cranial nerves II through XII intact. Motor and sensory exam nonfocal. Medical Decision Making 84 year old male presents via EMS [facility] after a unwitnessed fall today. EMS reports that patient may have been geting up to bathroom and tripped. He has a abrasion to the right frontal scalp and a abrasion to his right elbow and right knee. Patient is mostly non-verbal at baseline due to alzheimers dementia and aphasia. No blood thinners, VSS per EMS. Patient denies pain, no crepitus or pain elicited with C-spine palpation. Moves all 4 extremities and follows commands. On initial examination no focal neurodeficits noted no obvious signs of different from baseline. No reports of recent illness to suggest electrolyte abnormality or dehydration no nausea vomiting diarrhea. Patient is afebrile upon arrival no signs of infection. At this time I do not feel that lab work is necessary. He is moving all 4 extremities so the likelihood of a fracture is low. Does have superficial abrasions noted. Head CT ordered and wound care. No signs of trauma to chest, pelvis. Spoke with radiologist regarding head CT no significant change compared to prior CT of July 2024. No evidence of intracranial hemorrhage or fracture. Plan will be to transport patient back to [facility]. Patient transferred back to [facility] in condition. This text was generated using [employer] system, please disregard any oddities of phrase or misspellings. Medical Records Medical records reviewed: Yes I reviewed the patient's medical records. Quality:[facility] Health Related Social Needs: No Data to Display [facility] All Active Problems (Updated 06/05/25 @ 16:46 by Aiyana Figueroa NP) Fall (Acute) Closed head injury (Acute) Social History Smoking/Tobacco Use Status: Unknown Smoking risk assessment performed?: Yes Housing: [facility] Do you feel safe in your relationship?: Yes
[2025-05-03 16:11] VITALS: BP 127/72; PULSE 52; RESP 14; O2SAT 98
[2025-05-03 16:49] VITALS: BP 135/71; PULSE 56; RESP 14; O2SAT 97
== END 2025-05-03 17:10 | disposition skilled nursing facility (03) ==
PROVIDERS: Emergency Provider Registered Nurse Emergency; PCP Family Medicine
DX: S09.8XXA Other specified injuries of head, initial encounter (principal); W01.0XXA Fall on same level from slipping, tripping and stumbling without subsequent striking against object, initial encounter
CPT/HCPCS: 99283; 99284; 70450

== ENCOUNTER 2025-05-15 02:05 | Outpatient (CLI) | payer MEDICARE, MEDICAID, SELFPAY ==
--- NOTE | 2025-05-15 14:07 | DI.RAD_ITS ---
Exam(s) XR WRIST LT COMPLETE EXAM: XR WRIST LT COMPLETE CLINICAL HISTORY: S/P FALL, PAIN. TECHNIQUE: 2D digital imaging was performed. Three views. COMPARISON: No exams were available for comparison FINDINGS: BONES: No acute fracture is present. Chronic appearing deformity of the distal ulna which could be related to an old fracture. No bony destructive lesion is seen. JOINTS: There is widening of the scapholunate distance there are advanced degenerative changes at the radial lunate joint and 1st carpal metacarpal joint. SOFT TISSUE: Swelling around the wrist. IMPRESSION: Degenerative changes. No evidence of fracture. DATA REPOSITORY: RADIATION DOSE DELIVERED:
== END 2025-05-15 02:25 ==
PROVIDERS: PCP Family Medicine; Visit Provider Nurse Practitioner Gerontology
DX: M25.532 Pain in left wrist (principal)
CPT/HCPCS: 73110

== ENCOUNTER 2025-06-06 10:29 | Emergency (ER) | payer MEDICARE, MEDICAID, SELFPAY ==
[2025-06-06] VITALS (21 sets, daily range): BP systolic 101–214; BP diastolic 69–180; PULSE 68–122; RESP 13–27; TEMP 35.9–36.3; O2SAT 65–100
[2025-06-06 11:22] LABS: Abs Immature Grans 0.06 10^3/uL (0.0-0.06); HCT 45.3 % (40.0-50.0); HGB 15.3 g/dL (13.5-17.5); Immature Grans % 0.5 %; MCH 30.7 pg (27.0-33.0); MCHC 33.8 % (32.0-36.0); MCV 91 fL (80-95); Platelet Count 223 10^3/uL (130-400); RBC 4.98 10^6/uL (4.36-5.78); RDW 17.3 % (11.8-14.1); RDW-SD 54.8 fL; WBC 12.83 10^3/uL (4.4-10.8)
[2025-06-06 11:23] LABS: BE (Venous) -9 mmol/L (-2-3); HCO3 (Venous) 16 mmol/L (23-28); O2 Sat (Venous) 53 %; TCO2 (Venous) 14 mmol/L (24-29); pCO2 (Venous) 25 mmHg (41-51); pO2 (Venous) 29 mmHg
[2025-06-06 11:33] LABS: INR 1.3 (0.9-1.1); Prothrombin Time 13.0 sec (9.1-11.1)
[2025-06-06] MEDS: Normal Saline 1,000 ML 1000 ML IV (11:48)
--- NOTE | 2025-06-06 11:50 | W.ED.GENAD ---
Discharge Plan Disposition Patient Disposition: Home Discharge Details Clinical Impression: Acute renal failure, Acute hyperkalemia, Acute metabolic encephalopathy Primary Care Provider: Vivek Nava ED Provider: Gutierrez Wilcox Home Meds and New Rx's Prescriptions: No Action bisacodyl 10 mg suppository 10 mg [place] DAILY PRN sennosides [Senna Lax] 8.6 mg tablet 8.6 mg PO DAILY sertraline 50 mg tablet 75 mg PO DAILY buspirone 5 mg tablet 5 mg PO BID celecoxib [Celebrex] 200 mg capsule 200 mg PO DAILY methocarbamol 500 mg tablet 500 mg PO Q6H PRN acetaminophen 325 mg capsule 325 mg PO Q6H PRN guaifenesin [Chest Congestion Relief] 400 mg tablet 400 mg PO Q6H PRN risperidone [Risperdal] 0.5 mg tablet 0.5 mg PO BID PRN (Reason: agitation) Discharge Instructions Additional Instructions: Lab work indicates severe renal disease with significant metabolic derangement causing his encephalopathy. Patient family member and decision maker, son Cecil, agrees that the patient should be kept at comfort measures only at this time. He is on his way to [facility], but understands that his dad is in the process of dying and he just wants to keep him comfortable. HPI General Date/Time Provider Initiated Documentation: 06/06/25 10:33. Limitations to Documentation: altered mental status and physical limitation. Information obtained by: RN/MD and old records reviewed. HPI Narrative: 85-year-old gentleman with history of severe end-stage dementia presents [facility] for evaluation of altered mental status. Per nursing report, she is a traveler nurse and new to seeing the patient, but today noted that he seemed to be minimally responsive. They also discovered that the patient had vomited. This was not bright red or coffee-ground. Related Data Home Medications ?Medication ?Instructions ?Recorded ?Confirmed bisacodyl 10 mg rectal suppository 10 mg [place] DAILY PRN 06/29/24 06/06/25 sennosides 8.6 mg tablet (Senna 8.6 mg PO DAILY 06/29/24 06/06/25 Lax) sertraline 50 mg tablet 75 mg PO DAILY 06/29/24 06/06/25 buspirone 5 mg tablet 5 mg PO BID 08/19/24 06/06/25 celecoxib 200 mg capsule (Celebrex) 200 mg PO DAILY 08/19/24 06/06/25 methocarbamol 500 mg tablet 500 mg PO Q6H PRN 08/19/24 06/06/25 acetaminophen 325 mg capsule 325 mg PO Q6H PRN 05/03/25 06/06/25 guaifenesin 400 mg tablet (Chest 400 mg PO Q6H PRN 06/06/25 06/06/25 Congestion Relief) risperidone 0.5 mg tablet 0.5 mg PO BID PRN agitation 06/06/25 06/06/25 (Risperdal) Allergies Allergy/AdvReac Type Severity Reaction Status Date / Time No Known Allergies Allergy Unverified 05/03/25 16:03 General Stated Complaint: AMS/LOC SUZAN: 2 Exam Narrative Exam Narrative: Review of Systems: All systems reviewed & are unremarkable except as noted in HPI and below Ill-appearing NCAT RRR Tachypneic, not hypoxic Nondistended abdomen Is laying on his side, responsive to fairly deep stimulus but otherwise minimally responsive mottled, diffusely cool to touch Course Vital Signs Vital signs: Vital Signs Temperature 35.9 C L 06/06/25 10:32 Pulse 68 06/06/25 10:32 Respiratory Rate 14 06/06/25 10:32 Blood Pressure 208/164 H 06/06/25 10:32 Pulse Oximetry 93 06/06/25 10:32 Temperature 35.9 C L 06/06/25 10:32 Temperature Source Rectal 06/06/25 10:32 Pulse 68 06/06/25 10:32 Respiratory Rate 14 06/06/25 10:32 Blood Pressure 208/164 H 06/06/25 10:32 Blood Pressure Position Supine 06/06/25 10:32 Pulse Oximetry 93 06/06/25 10:32 Oxygen Delivery Method Room Air 06/06/25 10:32 Oxygen Flow Rate 0 06/06/25 10:32 Lab/Test Results Lab/Test Results: Laboratory Tests Range/Units 06/06/25 11:07 VBG pH (7.31-7.41) 7.41 VBG pCO2 (41-51) mmHg 25 L VBG pO2 mmHg 29 VBG HCO3 (23-28) mmol/L 16 L VBG Total CO2 (24-29) mmol/L 14 L VBG O2 Saturation % 53 VBG Base Excess (-2-3) mmol/L -9 L VBG Lactate (<or=2.0) mmol/L 5.3 H* Medical Decision Making Emergent evaluation of altered mental status. Limited history available at this time. Per report patient has severe dementia. I reviewed the patient's COLST form noted that he does not want invasive procedures or intubation would do a trial of antibiotics. Lab work was obtained to evaluate for possible etiology of concerns for worsened mental status. White blood cell count is elevated there is no anemia, he has severe electrolyte derangement including hypernatremia hyperkalemia a BUN of 207 and a creatinine of 7.9. In addition to other findings. His procalcitonin is 3.5. Initially the patient was being resuscitated with IV fluids and broad-spectrum antibiotics, other orders had been placed for imaging, but after reviewing the lab work I was able to discuss with his power divorce attorney, son Cecil who would like to keep the patient comfortable. At this time based on the labs, aggressive treatment dialysis etc., these labs are not compatible with life. The patient's son does not want any other additional treatment to be done. He just wants the patient to be comfortable. He understands that he will likely in short order and he is on his way back to [facility]. The patient will be transported back to [facility] with comfort measures only send notified that patient will be going back to [facility] for this. PFSH All Active Problems (Updated 06/06/25 @ 13:26 by Gutierrez Wilcox MD) Acute metabolic encephalopathy (Acute) Acute hyperkalemia (Acute) Acute renal failure (Acute) Social History Smoking/Tobacco Use Status: Unknown Smoking risk assessment performed?: Yes Housing: alf Do you feel safe in your relationship?: Yes
[2025-06-06 11:51] LABS: RBC Morphology Normal
[2025-06-06 11:56] LABS: Ammonia < 10 umol/L (11-32)
[2025-06-06 11:58] LABS: ALT 31 U/L (16-63); AST 78 U/L (15-37); Albumin 2.9 g/dL (3.4-5.0); Alkaline Phosphatase 252 U/L (46-116); Anion Gap 24.8 mmol/L (3-11); Bilirubin, Total 0.6 mg/dL (0.2-1.0); CO2 16.2 mmol/L (21.0-32.0); Calcium 10.9 mg/dL (8.5-10.1); Chloride 126 mmol/L (98-107); Estimated GFR 6.21 (mL/min/1.73m2); Glucose 137 mg/dL (74-106); Magnesium 3.2 mg/dL (1.8-2.4); TSH (W/Ref FT4) 3.34 uIU/mL (0.36-3.74); Total Protein 8.2 g/dL (6.4-8.2); Troponin I 70 ng/L (<or=76)
[2025-06-06 12:01] LABS: BUN 207 mg/dL (7-18); Potassium 6.2 mmol/L (3.5-5.1); Sodium 167 mmol/L (136-145)
[2025-06-06 12:07] LABS: Procalcitonin 3.56 ng/mL
[2025-06-06] MEDS: Insulin REGULAR-Human 100 UNITS/ML UNIT 10 UNITS IV (12:40)
[2025-06-06] MEDS: Dextrose 50%-Water 25 GM/50 ML SYR IVP (12:42)
[2025-06-06] MEDS: Lidocaine 2% Jelly 11 ML SYR (12:43)
[2025-06-06] MEDS: CALCIUM GLUCONATE in NaCl 1 GM/50 ML BAG IVPB (12:43)
[2025-06-06 13:10] LABS: Cannabinoids THC Negative (Negative); METHADONE URINE SCREEN Negative (Negative)
[2025-06-06 13:15] LABS: Glucose Negative (Negative)
[2025-06-06] MEDS: CEFEPIME 1 GM in Normal Saline 50 ML IVPB (13:25)
[2025-06-06 13:32] LABS: C & S Indicated? Yes; RBC 20-50 HPF (0-2); WBC >50 HPF (0-5)
== END 2025-06-06 14:17 | disposition home or self-care (01) ==
LOC: ER 13:29
PROVIDERS: Emergency Provider Emergency Medicine; PCP Family Medicine
DX: G93.41 Metabolic encephalopathy (principal); N17.9 Acute kidney failure, unspecified; E87.5 Hyperkalemia; I10 Essential (primary) hypertension; F03.C0 Unspecified dementia, severe, without behavioral disturbance, psychotic disturbance, mood disturbance, and anxiety
CPT/HCPCS: 99284; 99285; 96375; 51702; 36415; 36416; 82962; 80053; 80307; 82805; 84145; 87077; 96361; 96365; 96367; 80320; 81003; 81015; 82140; 83605; 83735; 84443; 84484; 85025; 85610; 87086; 87186; J0613; J0692; J1815